=== PATIENT | female | born 1955 | race Caucasian/White ===

== ENCOUNTER → 2020-05-04 | Outpatient (CLI) | payer BC | LOC: GMAJ 17:00 | PROVIDERS: ATTEND Family Medicine | DX: R22.1 Localized swelling, mass and lump, neck (principal) ==

== ENCOUNTER → 2020-05-06 | Outpatient (CLI) | payer BC ==
--- NOTE | 2020-05-07 15:20 | US ---
US HEAD NECK SOFT TISSUE CLINICAL STATEMENT:65 years Female LOCALIZED SWELLING, MASS, AND LUMP, NECK. No palpable mass. No previous thyroid surgery and no current therapy. COMPARISON: None TECHNIQUE: Transcutaneous scanning, grayscale and Doppler modes. FINDINGS: Size right thyroid lobe: 4.2 x 1.3 x 1.2 cm Size left thyroid lobe: 3.1 x 1.1 x 0.4 cm Size isthmus: 0.2 cm Estimated total number of nodules greater than or equal to 1 cm: None.. Nodule 1: Size: 0.5 x 0.4 x 0.3 cm Location: Right Mid Composition: solid or almost completely solid: 2 points Echogenicity: hypoechoic: 2 points Shape: wider than tall: 0 points Margins: smooth: 0 points Echogenic foci: none: 0 points ACR Total Points: 4; ACR TI-RADS risk category: TR4 - moderately suspicious nodule. No distinct cyst, no dominant solid mass, no fluid collection, and no large calcifications in the surrounding soft tissues. IMPRESSION: 1. Nodule 1: ACR TI-RADS 2017 Category TR4. Recommend: No further follow-up. Recommendations based upon [facility] [employer] [facility] recommendations and ACR TI-RADS 2017 guidelines. Please see below*. 2. Soft tissue around the thyroid gland is unremarkable. *ACR TI-RADS 2017 Recommendations for imaging follow-up of nodules (baseline study): TR1: No FNA or follow up TR2: No FNA or follow up TR3: FNA if >/= 2.5 cm, follow up if 1.5 - 2.4 cm in 1, 3, and 5 years TR4: FNA if >/= 1.5 cm, follow up if 1.0 - 1.4 cm in 1, 2, 3, and 5 years TR5: FNA if >/= 1.0 cm, follow up if 0.5 - 0.9 cm every year for 5 years ACR TI-RADS recommends that no more than two nodules with the highest ACR TI-RADS total point should be biopsied and no more than four nodules should be followed. These recommendations do not apply to patients with increased risk for thyroid cancer or patients with symptomatic thyroid disease. Electronically signed by: Jeyson Farnsworth MD 05/07/2020 3:18 PM CDT
== END ==
LOC: US 14:16
PROVIDERS: ATTEND Family Medicine
DX: E04.1 Nontoxic single thyroid nodule (principal)

== ENCOUNTER → 2020-05-25 | Outpatient (CLI) | payer BC ==
--- NOTE | 2020-05-26 09:19 | RAD ---
EXAM DESCRIPTION: UGI: Rad-Fluoroscopy. CLINICAL HISTORY: OTHER DYSPHAGIA COMPARISON: Ultrasound soft tissues May 06. TECHNIQUE: Fluoroscopy performed by Dr. Farnsworth The patient swallowed barium pill with water. The patient then swallowed gas-producing granules, water, and heavy density barium under fluoroscopic visualization. The images were obtained with the patient standing and horizontal. Patient drank medium density barium through a straw in the semi-prone position. 119 fluoroscopic cine loop images. 6 single static fluoroscopic images. Total fluoroscopy time was 2.3 minutes.. DAP: 10.18 Gy-cm2... Dose 50.22 mGy. FINDINGS: Patient swallowed barium pill and demonstrated slight delay in the oropharynx and larynx with no delay until the gastroesophageal junction. Prior to swallowing contrast, there was premature spillage into the left vallecula. No laryngeal aspiration or penetration. Normal primary peristaltic wave to the distal third of the esophagus. At this level, the esophagus dilates slightly and demonstrates secondary contractions. No hiatal hernia, no gastroesophageal narrowing. Minimal gastroesophageal reflux with gas only. No mass effect on the esophagus. Limited views of the stomach and duodenum show no mass effect, no obstruction, no dominant mucosal lesions. IMPRESSION: 1. Premature spillage of contrast into the left vallecula during oral phase of swallowing. No laryngeal penetration or aspiration. No mass effect. 2. Delayed passage of contrast through the distal third of the esophagus with slight dilation and secondary contractions. No obstruction at the gastroesophageal junction. Minimal gaseous reflux. No mucosal lesions. No mass effect. Electronically signed by: Jeyson Farnsworth MD 05/26/2020 9:10 AM CDT
== END ==
LOC: RAD 08:59
PROVIDERS: ATTEND Family Medicine
DX: K22.4 Dyskinesia of esophagus (principal)